=== PATIENT | female | born 1950 | race Caucasian/White ===

== ENCOUNTER → 2020-05-18 | Outpatient (CLI) | payer MEDICARE, OTHER ==
--- NOTE | 2020-05-18 21:06 | CONS ---
CONSULTATION DATE OF SERVICE: 05/18/2020 This patient is a 69-year-old lady who [facility] obstructive sleep apnea-hypopnea syndrome and episodes of excessive daytime sleepiness and fatigue. HISTORY OF PRESENT ILLNESS/SLEEP-WAKE EVALUATION: This patient was diagnosed with obstructive sleep apnea in 2012. Since that time she has been on treatment with CPAP. She continues to use his CPAP equipment every night. Her regular sleep schedule is from midnight or 1 a.m. until 10:30 a.m. She does have problems with falling asleep, has a TV set in the bedroom. She usually sleeps on the back and side positions. She takes multiple rest periods during the day. She has difficulties paying attention, problems with memory and concentration, sexual dysfunction. At night she wakes up once, usually without any episodes of nocturia. She describes that sometimes there are days when she is sleeping all day, although [place] Sleepiness Scale is only 1. I checked the patient's CPAP unit. CPAP pressure is 9 cm of water, usage 30/30 nights with average usage 8.8 hours per night. The machine does not have information about apnea-hypopnea index. PAST MEDICAL HISTORY: Positive for multiple sclerosis diagnosed about 25 years ago with documented lesions by MRI in the brain. According to the patient, recent evaluation by did not show any abnormalities of neurological exam. She has a history of hypertension, depression, hyperlipidemia, multifactorial fatigue. Some evaluation for lupus erythematosus also was positive (?) SOCIAL HISTORY: Negative for smoking or using alcohol. MEDICATIONS: Clopidogrel, hydrochlorothiazide, Viibryd, metoprolol, buspirone, atorvastatin, lisinopril, alendronate, lorazepam, ipratropium bromide. REVIEW OF SYSTEMS: Episodes of fatigue, tiredness and sometimes sleepiness during the day. PHYSICAL EXAMINATION: GENERAL: A pleasant patient in no distress. VITAL SIGNS: BP 149/81, HR 80, RR 16, height 5 feet 4-1/2 inches, weight 172, BMI 29.0, temperature 97.9, oxygen saturation at room air 98%. HEENT: PERRLA, EOMI. Evaluation of oropharynx showed tongue protrudes midline. Low position of soft palate. Mallampati III to IV. NECK: Supple. No JVD. Thyroid is not palpable. Neck measures 15 inches in circumference. LUNGS: Clear to percussion and to auscultation. Good air exchange. No wheezing or rhonchi. HEART: S1, S2 regular. No murmurs, gallops or rubs. ABDOMEN: Obese. EXTREMITIES: No clubbing or cyanosis. WOLF HUNTER: Awake, alert, and oriented X3. Cranial nerves 2 to 7 intact. There is no fasciculation or atrophy. noted. No focal deficits observed. IMPRESSION: 1. Obstructive sleep apnea-hypopnea syndrome diagnosed about 7 years ago in another institution. The patient is on treatment with CPAP every night for the whole night. 2. History of multiple sclerosis documented by results of MRI multiple times. Last results, according to patient, about 3 years ago. Last changes were documented about 3 years ago. 3. History of multifactorial fatigue. 4. Episodes of significant daytime sleepiness, with patient staying in bed for many hours and falling asleep, according to patient. Differential diagnosis should include hypersomnia. 5. Hypertension. 6. Depression. 7. Hyperlipidemia. 8. Questionable positive results for lupus erythematosus evaluation in the past. PLAN: 1. To get results of previous sleep studies. 2. CPAP titration with a following multiple sleep latency test on the next day for evaluation of effective CPAP pressure at the present time and to objectively assess sleepiness. 3. After the test, patient will receive new PAP therapy device. 4. Sleep hygiene with regular time in bed for 7-1/2 to 8 hours. 5. No driving if feeling any sleepiness. Thank you very much for allowing me to participate in the management of your patient. Sincerely, Ian Urbano MD, PhD, FAASM Diplomat of [employer] [facility] MMODL / IJN: [id number] /
== END | disposition home or self-care (01) ==
LOC: SLEEP 15:32
PROVIDERS: ATTEND Internal Medicine
DX: G47.33 Obstructive sleep apnea (adult) (pediatric) (principal); I10 Essential (primary) hypertension; F32.9 Major depressive disorder, single episode, unspecified; E78.5 Hyperlipidemia, unspecified; Z86.69 Personal history of other diseases of the nervous system and sense organs; Z79.899 Other long term (current) drug therapy
CPT/HCPCS: 99211

== ENCOUNTER 2021-08-11 05:33 | Emergency (ER) | payer MEDICARE, OTHER ==
[2021-08-11 05:39] VITALS: RESP 18; TEMP 97.9
[2021-08-11] MEDS ORDERED: IBUPROFEN 600 MG TAB PO STA (06:02)
[2021-08-11] MEDS ORDERED: DEXAMETHASONE SOD PHOSPHATE 10 MG/ML 1 ML VIAL IM STA (06:02)
[2021-08-11] MEDS ORDERED: ACETAMINOPHEN TAB 500 MG TAB PO STA (06:03)
--- NOTE | 2021-08-11 06:10 | ED ---
ENT HPI - General Chief complaint: ENT Stated complaint: sore throat Time Seen by Provider: 08/11/21 05:35 Source: patient, RN notes reviewed, old records reviewed Mode of arrival: ambulatory Limitations: no limitations - History of Present Illness Initial comments: This is a 71-year-old female to the emergency room today. Patient presents today for evaluation regards to sore throat. Patient awoke with sore throat tonight. No fevers. No nausea no vomiting. Significant swelling. No recent travel history or sick contacts. No other complaints no family versus similar complaints MD complaint: sore throat -: hour(s) Location: throat Severity: moderate Severity scale (1-10): 4 Quality: aching Consistency: constant Improves with: none Worsens with: swallowing Associated Symptoms: pain with swallowing, sore throat - Related Data Previous Rx's Medication Instructions Recorded Azithromycin [Zithromax] 250 mg PO DAILY 1 Days #1 tab 08/11/21 Allergies Allergy/AdvReac Type Severity Reaction Status Date / Time Penicillins Allergy Unknown Verified 08/15/21 14:01 Childhood Review of Systems ROS Statement: Those systems with pertinent positive or pertinent negative responses have been documented in the HPI. ROS Other: All systems not noted in ROS Statement are negative. Past Medical History Past Medical History: Hypertension, Myocardial Infarction ([place]) History of Any Multi-Drug Resistant Organisms: None Reported Past Surgical History: Heart Catheterization With Stent Past Psychological History: Anxiety, Depression Smoking Status: Never smoker Past Alcohol Use History: None Reported Past Drug Use History: None Reported General Exam Limitations: no limitations General appearance: alert, in no apparent distress Head exam: Present: atraumatic, normocephalic, normal inspection Eye exam: Present: normal appearance, PERRL, EOMI. Absent: scleral icterus, conjunctival injection, periorbital swelling ENT exam: Present: normal exam, mucous membranes moist Neck exam: Present: normal inspection. Absent: tenderness, meningismus, lymphadenopathy Respiratory exam: Present: normal lung sounds bilaterally. Absent: respiratory distress, wheezes, rales, rhonchi, stridor Cardiovascular Exam: Present: regular rate, normal rhythm, normal heart sounds. Absent: systolic murmur, diastolic murmur, rubs, gallop, clicks GI/Abdominal exam: Present: soft, normal bowel sounds. Absent: distended, tenderness, guarding, rebound, rigid Extremities exam: Present: normal inspection, full ROM, normal capillary refill. Absent: tenderness, pedal edema, joint swelling, calf tenderness Back exam: Present: normal inspection Neurological exam: Present: alert, oriented X3, CN II-XII intact Psychiatric exam: Present: normal affect, normal mood Skin exam: Present: warm, dry, intact, normal color. Absent: rash Course Vital Signs 08/11/21 08/11/21 05:36 06:45 Temperature 97.9 F Pulse Rate 82 79 Respiratory 18 18 Rate Blood Pressure 194/80 165/82 O2 Sat by Pulse 99 98 Oximetry - Reevaluation(s) Reevaluation #1: Medical record is reviewed Patient symptoms are improved here in the ER and remained improved Patient informed results and questions answered Medical Decision Making - Medical Decision Making This female DF for evaluation of significant sore throat woke up with sore throat tonight. Swelling. Patient has swelling of uvula and difficulty with swallowing. Symptoms significantly improved here in the ER patient's improved patient can be discharged home - Radiology Data Radiology results: report reviewed (X-ray soft tissue neck is negative for acute disease), image reviewed Disposition Clinical Impression: Uvulitis, Sore throat, Strep pharyngitis Disposition: HOME SELF-CARE Condition: Good Instructions (If sedation given, give patient instructions): Pharyngitis (ED), Strep Throat (ED) Prescriptions: Azithromycin [Zithromax] 250 mg PO DAILY 1 Days #1 tab Is patient prescribed a controlled substance at d/c from ED?: No Referrals: Nonstaff,Physician [Primary Care Provider] - 1-2 days
[2021-08-11] MEDS ORDERED: AZITHROMYCIN 500 MG TAB PO STA (06:12)
--- NOTE | 2021-08-11 06:21 | XR ---
EXAMINATION TYPE: XR soft tissue neck DATE OF EXAM: 08/11/2021 COMPARISON: NONE HISTORY: Sore throat TECHNIQUE: 2 views FINDINGS: Epiglottis is normal. There is moderate spondylotic changes in the cervical spine from C4 t o C7. There is anterior large osteophyte formation. Subglottic trachea appears normal. Tonsils and ad enoids appear normal. IMPRESSION: Negative cervical soft tissue exam. Spondylotic changes noted in the cervical spine.
[2021-08-11 06:46] VITALS: BP 165/82; PULSE 79
== END 2021-08-11 06:46 | disposition home or self-care (01) ==
LOC: EC 05:33
DX: K12.2 Cellulitis and abscess of mouth (principal); J02.0 Streptococcal pharyngitis; I10 Essential (primary) hypertension; I25.2 Old myocardial infarction; Z88.0 Allergy status to penicillin
CPT/HCPCS: 70360; 99283; J1100

== ENCOUNTER 2021-08-15 13:16 | Emergency (ER) | payer MEDICARE, OTHER ==
[2021-08-15 14:01] VITALS: BP 198/81; PULSE 70; RESP 20; TEMP 98.6
--- NOTE | 2021-08-15 16:20 | XR ---
EXAMINATION TYPE: XR hand complete LT, XR wrist complete LT DATE OF EXAM: 08/15/2021 CLINICAL HISTORY: pain TECHNIQUE: Frontal, lateral and oblique images of the left hand and wrist are obtained. COMPARISON: None. FINDINGS: There is no acute fracture/dislocation evident. The joint spaces appear within normal limi ts. The overlying soft tissue appears unremarkable. IMPRESSION: There is no acute fracture or dislocation. ICD 10 NO FRACTURE, INITIAL EVALUATION
--- NOTE | 2021-08-15 16:27 | ED ---
Upper Extremity HPI - General Chief Complaint: Extremity Injury, Upper Stated Complaint: Fall/wrist injury/wants covid test Time Seen by Provider: 08/15/21 16:10 Source: patient, RN notes reviewed Mode of arrival: ambulatory Limitations: no limitations - History of Present Illness Initial Comments: This a 71-year-old female presents emergency from chief complaint of a fall. Patient was left wrist and hand pain. No head injury no loss conscious. Patient states it is swollen. Patient states that the trip and fallsyncope. Patient states that she's been sick she was placed in antibiotics for her primary care physician requested COVID-19 testing. Patient offers no other associated complaints. - Related Data Previous Rx's Medication Instructions Recorded Azithromycin [Zithromax] 250 mg PO DAILY 1 Days #1 tab 08/11/21 Allergies Allergy/AdvReac Type Severity Reaction Status Date / Time Penicillins Allergy Unknown Verified 08/15/21 14:01 Childhood Review of Systems ROS Statement: Those systems with pertinent positive or pertinent negative responses have been documented in the HPI. ROS Other: All systems not noted in ROS Statement are negative. Past Medical History Past Medical History: Hypertension, Myocardial Infarction ([place]) History of Any Multi-Drug Resistant Organisms: None Reported Past Surgical History: Heart Catheterization With Stent Past Psychological History: Anxiety, Depression Smoking Status: Never smoker Past Alcohol Use History: None Reported Past Drug Use History: None Reported General Exam Limitations: no limitations General appearance: alert, in no apparent distress Head exam: Present: atraumatic, normocephalic, normal inspection Eye exam: Present: normal appearance, PERRL, EOMI. Absent: scleral icterus, conjunctival injection, periorbital swelling ENT exam: Present: normal exam, mucous membranes moist Respiratory exam: Present: normal lung sounds bilaterally. Absent: respiratory distress, wheezes, rales, rhonchi, stridor Cardiovascular Exam: Present: regular rate, normal rhythm, normal heart sounds. Absent: systolic murmur, diastolic murmur, rubs, gallop, clicks Extremities exam: Present: other (Left wrist, hand swelling noted, tenderness palpation distal radius and almost, neurovascular intact) Course Vital Signs 08/15/21 13:58 Temperature 98.6 F Pulse Rate 70 Respiratory 20 Rate Blood Pressure 198/81 O2 Sat by Pulse 98 Oximetry Medical Decision Making - Medical Decision Making Patient was offered pain relief patient declines. X-rays reviewed no acute fracture. Patient is COVID-19 negative. - Lab Data Lab Results 08/15/21 Range/Units 14:05 Coronavirus (PCR) Not Detected (Not Detectd) Disposition Clinical Impression: Left wrist sprain Disposition: HOME SELF-CARE Condition: Stable Instructions (If sedation given, give patient instructions): Wrist Injury (ED) Additional Instructions: Please return to the Emergency Department if symptoms worsen or any other concerns. Is patient prescribed a controlled substance at d/c from ED?: No Referrals: Nonstaff,Physician [Primary Care Provider] - 1-2 days Time of Disposition: 16:27
== END 2021-08-15 16:37 | disposition home or self-care (01) ==
LOC: EC 13:16
DX: S63.502A Unspecified sprain of left wrist, initial encounter (principal); I10 Essential (primary) hypertension; I25.2 Old myocardial infarction; Z88.0 Allergy status to penicillin; Z20.822 Contact with and (suspected) exposure to COVID-19; Z95.5 Presence of coronary angioplasty implant and graft; W01.0XXA Fall on same level from slipping, tripping and stumbling without subsequent striking against object, initial encounter
CPT/HCPCS: 87635; 99283

== ENCOUNTER → 2022-09-28 | Outpatient (CLI) | payer MEDICARE, OTHER ==
[2022-09-28 16:16] LABS: Basophils # (A) 0.03 X 10*3/uL (0.00-0.10); Basophils % (A) 0.6 %; Eosinophils # (A) 0.09 X 10*3/uL (0.04-0.35); Eosinophils % (A) 1.7 %; HCT 41.5 % (37.2-46.3); HGB 13.3 g/dL (12.0-15.0); Immature Grans, Automated 0.4 %; Lymphocytes # (A) 1.65 X 10*3/uL (0.90-5.00); Lymphocytes % (A) 31.1 %; Mean Platelet Volume 10.4 fL (9.5-12.2); Monocytes # (A) 0.56 X 10*3/uL (0.20-1.00); Monocytes % (A) 10.6 %; NRBC Per 100 WBC 0 /100 WBCS (0.0-0.0); Neutrophils # (A) 2.95 X 10*3/uL (1.80-7.70); Neutrophils % (A) 55.6 %; Platelet Count 231 X 10*3/uL (140-440); RBC 4.15 X 10*6/uL (4.10-5.20); RDW 12.9 % (11.5-14.5)
[2022-09-28 16:30] LABS: ALT 26 U/L (8-44); AST 28 U/L (13-35); African American GFR (CKD) 87.5 (60.0-200.0); Albumin 4.3 g/dL (3.8-4.9); Albumin/Globulin Ratio 2.14 (1.60-3.17); Alkaline Phosphatase 104 U/L (41-126); BUN/Creat Ratio 14.06 Ratio (12.00-20.00); Blood Urea Nitrogen 10.9 mg/dL (9.0-27.0); Calcium 9.4 mg/dL (8.7-10.3); Carbon Dioxide 28.6 mmol/L (20.0-27.5); Chloride 101 mmol/L (96-109); Chol/HDL Ratio 2.58 Ratio; Glucose 133 mg/dL (70-110); LDL Cholesterol,Calculated 69.8 mg/dL (0.0-131.0); Non-African American GFR(CKD) 75.5 (60.0-200.0); Potassium 3.6 mmol/L (3.5-5.5); Sodium 141 mmol/L (135-145); Total Protein 6.4 g/dL (6.2-8.2)
== END | disposition home or self-care (01) ==
LOC: LABWHC1 11:43
PROVIDERS: ATTEND Internal Medicine
DX: Z01.812 Encounter for preprocedural laboratory examination (principal); E11.9 Type 2 diabetes mellitus without complications; I10 Essential (primary) hypertension; E78.5 Hyperlipidemia, unspecified; I25.10 Atherosclerotic heart disease of native coronary artery without angina pectoris
CPT/HCPCS: 36415; 80053; 80061; 83036; 85025

== ENCOUNTER 2022-10-02 08:38 | Inpatient (IN) | payer MEDICARE, OTHER ==
[~2022-10-02 08:38] MED LIST: DEXAMETHASONE SOD PHOSPHATE 4 MG/ML 1 ML VIAL IV ONE; LIDOCAINE 1% (10MG/ML) FOR IV START INTRADERMA PRN; MIDAZOLAM 2 MG/2 ML VIAL IV PRN; ONDANSETRON 4 MG/2 ML VIAL IVP ONE
[2022-10-02 09:46] LABS: Glucose,Whole Blood 112 mg/dL (70-110)
[2022-10-02] MEDS: LACTATED RINGERS 1,000 ML IV SCH (09:57)
[2022-10-02 11:25] LABS: Appearance,Urine Clear (Clear); Bilirubin,Urine Negative (Negative); Blood,Urine Negative (Negative); Color,Urine Colorless; Glucose,Urine (UA) Negative (Negative); Ketones,Urine Negative (Negative); Leukocyte Esterase,Urine Negative (Negative); Nitrite,Urine Negative (Negative); Protein,Urine Negative (Negative); Specific Gravity,Urine 1.007 (1.001-1.035); Urobilinogen,Urine <2.0 mg/dL (<2.0)
[2022-10-02] MEDS ORDERED: SODIUM CHLORIDE 0.9% 50 ML with ceFAZolin 2,000 MG IV ONE ×2 (11:50)
[2022-10-02] MEDS ORDERED: LIDOCAINE 2%-EPI 1:100,000 20 ML VIAL SQ ONE (12:07)
[2022-10-02] MEDS ORDERED: ceFAZolin 1,000 MG in SODIUM CHLORIDE 0.9% 1,000 ML IRRIGATION ONE (12:26)
[2022-10-02] MEDS ORDERED: LACTATED RINGERS 1,000 ML IV ONE (12:35)
--- NOTE | 2022-10-02 13:06 | XR ---
EXAMINATION TYPE: XR cervical spine 1V DATE OF EXAM: 10/02/2022 COMPARISON: None HISTORY: Needle placement TECHNIQUE: Crosstable lateral cervical spine is obtained. FINDINGS: The needle was placed directed to the C5 vertebral level.. Large anterior vertebral body sp urs are present at C4 C5-6. IMPRESSION: 1. Metallic device directed towards the C5 vertebral level.
[2022-10-02] MEDS ORDERED: HYDROcodone/APAP 5-325MG 1 EACH TAB PO PRN (14:51)
[2022-10-02] MEDS ORDERED: ONDANSETRON 4 MG/2 ML VIAL IVP PRN (14:51)
[2022-10-02] MEDS ORDERED: diazePAM 5 MG TAB PO PRN (14:51)
[2022-10-02] MEDS ORDERED: CYCLOBENZAPRINE 5 MG TAB PO PRN (14:51)
[2022-10-02] MEDS ORDERED: BENZOCAINE/MENTHOL LOZENG 1 EACH LOZENGE MUCOUS MEM PRN (14:51)
[2022-10-02] MEDS ORDERED: LORazepam 0.5 MG TAB PO PRN (14:54)
[2022-10-02] MEDS ORDERED: FAMOTIDINE 20 MG TAB PO PRN (14:54)
[2022-10-02] MEDS: HYDROmorphone 0.5 MG/0.5 ML SYRINGE IVP PRN ×4 (15:00→20:54)
--- NOTE | 2022-10-02 15:04 | P.OP ---
Date of Procedure: 10/02/22 Preoperative Diagnosis: Cervical myelopathy, severe cervical stenosis C3 4 C4 5 C5 6, cervical kyphosis, cervical deformity, large osteophytes C4 5 C5 6, upper extremity radiculopathy, upper extremity weakness, degenerative disc disease Postoperative Diagnosis: Same Anesthesia: GETA Pathology: none sent Condition: stable Disposition: PACU Description of Procedure: BRIEF OPERATIVE NOTE Preoperative Diagnosis:Cervical myelopathy, severe cervical stenosis C3 4 C4 5 C5 6, cervical kyphosis, cervical deformity, large osteophytes C4 5 C5 6, upper extremity radiculopathy, upper extremity weakness, degenerative disc disease Postoperative Diagnosis:Cervical myelopathy, severe cervical stenosis C3 4 C4 5 C5 6, cervical kyphosis, cervical deformity, large osteophytes C4 5 C5 6, upper extremity radiculopathy, upper extremity weakness, degenerative disc disease Procedure: Cervical corpectomy of C5 for decompression Anterior cervical decompression and discectomy and fusion C3 4 C4 5 C5 6 Placement of interbody peek cage C4 to C6 Local autogenous bone grafting to fill the cage from C4 to C6 Placement of interbody allograft bone graft C3 4 Application of anterior cervical plate Surgeon: Dr. Watson Test And Balance Engineer: Gerardo Grimaldo is present throughout the entire the case persistence during positioning, dissection, exposure, visualization, and all crucial elements of the case as well as closure. Anesthesia: General anesthesia per Dr. Killian Estimated blood loss: Approximately 100 mL Complications: None apparent Components implanted: K2M [place] anterior cervical plate system with screws, one him because interbody allograft bone graft, one 22 mm peek cage Disposition: To recovery room in good stable condition. OPERATIVE INDICATIONS The patient has had long-standing issues in their neck and upper extremities. She has been having significant worsening of her symptoms at her neck and her upper extremities over the past several months. She has noticed radicular symptoms and weakness at her upper extremities as well. She is having increased neck pain. She is found have significant changes at her cervical spine and had undergone conservative treatment. The patient has been through conservative treatment. She is not having any significant benefit despite aggressive conservative care. She is found have significant cervical deformity with kyphosis and massive nature cervical osteophytes at C45 and C5 6 in conjunction with severe cervical stenosis and evidence of cervical myelopathy with upper extremity radiculopathy and weakness. We discussed various treatment options including surgery, and the patient wishes to proceed with surgery We discussed the risk, patient's alternatives and benefits of surgery including but not limited to, risk of bleeding risk of infection, risk of need for further surgery, risk of decreased, loss of motion, muscle function, malunion nonunion, hardware failure, nerve damage, paralysis, heart attack, and . OPERATIVE SUMMARY After discussing all the risks, patient alternatives and benefits at length, the patient elected to proceed with surgical intervention, signed informed consent, and presented for their procedure. The patient was seen and examined in the preoperative holding area and the surgical site was marked. The patient was given antibiotics and brought to the operating room. The patient was positioned on the operating room table in a supine position being careful to pad any bony prominences and pressure points. The patient was sedated and intubated by anesthesia in standard fashion. Once the airway and C- spine were stabilized the patient's arms were padded and tucked at her side, with her shoulders gently taped. The head was placed in a donut pad with the neck in good neutral alignment and position. We were careful to maintain the patient's cervical spine and good neutral alignment and position throughout. The patient was prepped and draped in a normal standard fashion. An appropriate timeout and keystone protocol performed. We were able to proceed with the surgery. The local wound area was infiltrated with local anesthetic. An incision was made transversely approximately 2-1/2 cm over the appropriate levels at C4 5. Dissection was taken down subcutaneously to the level of the platysma which was split in line with its fibers. Dissection was taken with a carotid approach, with the trachea and esophagus medial and the carotid sheath laterally. We dissected down to the anterior surface of the vertebral bodies. Intraoperative x-ray was taken which showed a marker at the appropriate level at C4 5 with massive osteophytes from C4 to C6. With the appropriate level positively confirmed, we were able to proceed with discectomy at the appropriate levels. I had to remove large areas of anterior cervical osteophytes in order to get down to stable bone and find the disc space itself. All of the operative levels were exposed appropriately from C3 to C6. The patient had all their twitches back, and there was no evidence of recurrent laryngeal issue. The wound was copiously irrigated and suctioned dry as had been done periodically throughout the case. I started with proceeding with a decompression discectomy at C5 6 and then moving the C4 5 and then performing a corpectomy of C5 as it was severe stenosis behind the vertebral body of C5. I then moved to C3 4 for the further discectomy and decompression at that level. At the appropriate level/levels, I had removed large osteophytes and then I established an annulotomy with an 11 blade scalpel. A discectomy was performed with a combination of pituitary rongeurs, curettes, a high-speed bur, and Kerrison rongeurs. The posterior longitudinal ligament was taken down as were any posterior osteophytes. This gave good central and bilateral foraminal decompression at the level of the disc. There is no evidence of any dural tear or leak. There was significant stenosis behind C5 and had to perform a complete corpectomy at that level to provide good central decompression behind C5. All of the bone that was removed from this was saved for local autogenous bone grafting. The endplates were prepared with a high-speed bur. From C4 to C6 I measured for the appropriate size peek cage which was filled with local a utogenous bone graft and then with anesthesia holding the head and neck in good neutral alignment and position was able to place the cage from C4 6 and position with good fit and fill with anterior surface flush with the anterior surface of the vertebral body of C4. When placing the other bone graft at C3 4 I was able to measure and place the allograft in good alignment and position with anterior surface flush with the anterior surface of the vertebral bodies of C3 4. With the endplates in good parallel position, I was able to size for the appropriate size interbody graft. The wound was irrigated and suctioned dry the graft was prepared and malleted into position. It had good alignment and position with the anterior surface flush with the anterior surface of the vertebral bodies. With the grafts intact, I was able to measure and contour and appropriate sized plate. The plate was positioned at the midline over the appropriate levels. Screw holes were established with a hand drill and drill guide. Screws were placed in good alignment and position with excellent bony purchase. I had to use a 4.0 screw for one and screws at C4 to get good purchase. They were seated under the locking device. The construct was checked and found to be stable. Intraoperative x-ray was taken which showed good alignment and position of the implants at the appropriate levels. There was no evidence of any dural tear or leak. Good hemostasis was maintained. The wound was copiously irrigated and suctioned dry as had been done periodically throughout the case. The platysma was closed with absorbable suture. The subcutaneous tissue was closed. The subcuticular tissue was closed with absorbable suture. The wound was cleaned and dried and dressed appropriately. A hard cervical collar was placed appropriately which is utilized in cases of corpectomy, . The patient was woken up by anesthesia, extubated, transferred back gently to their hospital bed and brought to the recovery room in good stable condition. The patient will be admitted to the hospital for appropriate postoperative care, medical management and monitoring. We will continue to follow them closely about the postoperative course.
--- NOTE | 2022-10-02 15:36 | XR ---
EXAMINATION TYPE: XR cervical spine 1V DATE OF EXAM: 10/02/2022 COMPARISON: Earlier exam HISTORY: Needle placement TECHNIQUE: Lateral cervical spine FINDINGS: Needle is directed to the superior endplate of C5. IMPRESSION: 1. Needle directed to the superior C5 endplate at the C4-5 disc level.
--- NOTE | 2022-10-02 15:47 | XR ---
EXAMINATION TYPE: XR cervical spine 1V DATE OF EXAM: 10/02/2022 COMPARISON: Earlier exam HISTORY: Hardware placement for anterior cervical fusion TECHNIQUE: Crosstable lateral cervical spine FINDINGS: Anterior cervical fusions present C3-C6. Disc spacer appears to be present. Patient is intu bated. IMPRESSION: 1. Anterior cervical fusion
--- NOTE | 2022-10-02 15:48 | XR ---
EXAMINATION TYPE: XR cervical spine 1V DATE OF EXAM: 10/02/2022 COMPARISON: Earlier exam HISTORY: Anterior cervical fusion TECHNIQUE: Crosstable lateral cervical spine FINDINGS: Anterior cervical fusion see 3 through C6 is present. Disc spacers and radiopaque markers w ere utilized. Patient is intubated. IMPRESSION: 1. Anterior cervical fusion.
[2022-10-02] MEDS: SODIUM CHLORIDE 0.9% 1,000 ML IV SCH (16:14)
[2022-10-02 16:38] LABS: Glucose,Whole Blood 136 mg/dL (70-110)
[2022-10-02] MEDS: CIPROFLOXACIN HCL 500 MG TAB PO SCH (20:50)
[2022-10-02] MEDS ORDERED: lisinopriL 10 MG TAB PO SCH (21:00)
[2022-10-02] MEDS ORDERED: ATORVASTATIN 40 MG TAB PO SCH (21:00)
[2022-10-02] MEDS ORDERED: busPIRone HCl 5 MG TAB PO SCH (21:00)
[2022-10-02] MEDS ORDERED: metFORMIN 500 MG TAB PO SCH (21:00)
[2022-10-02] MEDS: busPIRone HCl 10 MG TAB PO SCH (21:12)
[2022-10-03] MEDS: SODIUM CHLORIDE 0.9% 1,000 ML IV SCH ×2 (04:42→09:00)
[2022-10-03] MEDS ORDERED: PANTOPRAZOLE 40 MG TABLET PO SCH (07:30)
[2022-10-03 07:49] VITALS: BP 126/65; PULSE 72; RESP 18; TEMP 97.8
[2022-10-03] MEDS: LACTATED RINGERS 1,000 ML IV SCH (08:51)
[2022-10-03] MEDS ORDERED: CHOLECALCIFEROL 25 MCG (1000 IU) TABLET PO SCH (09:00)
[2022-10-03] MEDS ORDERED: NON FORMULARY DRUG (Ubidecarenone [Co Q-10] 400 MG Capsule) PO SCH (09:00)
[2022-10-03] MEDS ORDERED: ASPIRIN 81 MG PO SCH (09:00)
[2022-10-03] MEDS ORDERED: CALCIUM CARBONATE 500 MG CHEWABLE PO SCH (09:00)
[2022-10-03] MEDS ORDERED: hydroCHLOROthiazide 25 MG TAB PO SCH (09:00)
[2022-10-03] MEDS ORDERED: NON FORMULARY DRUG (Vilazodone Hcl [Viibryd] 40 MG Tablet) PO SCH (09:00)
[2022-10-03] MEDS ORDERED: CYANOCOBALAMIN 500 MCG TAB PO SCH (09:00)
[2022-10-03] MEDS ORDERED: METOPROLOL TARTRATE 25 MG TAB PO SCH (09:00)
[2022-10-03] MEDS: busPIRone HCl 10 MG TAB PO SCH (09:02)
[2022-10-03] MEDS: CIPROFLOXACIN HCL 500 MG TAB PO SCH (09:04)
--- NOTE | 2022-10-03 09:35 | P.DS ---
Providers Date of admission: 10/02/22 08:38 Attending physician: David Watson Primary care physician: [facility] Course: The patient presented on the day of admission as per their operative note. She feels her arms are doing well. She is walking well. She is tolerating her diet and is comfortable around her neck. Physical Exam The incision site is clean dry and intact. There is no erythema no drainage. There is no purulence no evidence of infection. Her neck is soft and supple. There is no active drainage. Abdomen soft and nontender. Chest has good excursion with deep inspiration and expiration. The patient has active and passive range of motion intact at the upper and lower extremities. There is no acute change in neurologic status. She has good motion at her upper extremities Hospital Course Postoperative day #1 status post decompression and fusion anterior cervical discectomy and fusion C3 4 C4 5 C5 6 with corpectomy of C5 for decompression for her cervical myelopathy with upper extremity radiculopathy and weakness. Patient is doing well and is making progress postoperatively. The patient has been making good progress postoperatively. She's been ambulatory around the room and is eating well. She feels her arms are doing well. They have completed the prophylactic antibiotics without any signs or symptoms of infection. The patient has been able to advance their diet, and is tolerating diet adequately. The pain was initially controlled with IV medications and is now controlled appropriately with oral medications. The patient has been able to increase their mobilization. The patient has progressed appropriately. I think they are in good stable condition for discharge today. They will be sent home with appropriate prescriptions. I answered their questions to the best of my ability in a language that they can understand and they are agreeable with the plan. They will follow up as directed. Patient Condition at Discharge: Good Plan - Discharge Summary Discharge Rx Participant: No New Discharge Prescriptions: New HYDROcodone/APAP 5-325MG [[place] 5-325] 1 tab PO Q6HR PRN 7 Days #28 tab PRN Reason: Pain No Action modafiniL [Provigil] 100 mg PO QAM Atorvastatin [Lipitor] 40 mg PO HS Ciprofloxacin HCl [Cipro] 500 mg PO BID Famotidine 20 mg PO BID PRN PRN Reason: GERD LORazepam [Ativan] 0.5 mg PO HS PRN PRN Reason: Anxiety Metoprolol Tartrate [Lopressor] 25 mg PO QAM Vilazodone HCl [Viibryd] 40 mg PO QAM Cyanocobalamin (Vitamin B-12) [Vitamin B-12] 1,000 mcg PO QAM Calcium Carbonate [Calcium] 600 mg PO DAILY Alendronate Sodium [Fosamax] 35 mg PO CUEVAS Dexlansoprazole [Dexlansoprazole Dr] 60 mg PO QAM busPIRone HCL 15 mg PO BID hydroCHLOROthiazide 25 mg PO QAM lisinopriL [Zestril] 10 mg PO HS metFORMIN HCL 500 mg PO HS Ubidecarenone [Co Q-10] 400 mg PO DAILY L.acidoph,Paracasei, B.lactis [Probiotic] 1 tab PO DAILY Rhodola 600 mg PO DAILY Cholecalciferol [Vitamin D3 (25 Mcg = 1000 Iu)] 50 mcg PO DAILY Aspirin EC [Ecotrin Low Dose] 81 mg PO DAILY Discharge Medication List Alendronate Sodium [Fosamax] 35 mg PO CUEVAS 09/30/22 [History] Aspirin EC [Ecotrin Low Dose] 81 mg PO DAILY 09/30/22 [History] Atorvastatin [Lipitor] 40 mg PO HS 09/30/22 [History] Calcium Carbonate [Calcium] 600 mg PO DAILY 09/30/22 [History] Cholecalciferol [Vitamin D3 (25 Mcg = 1000 Iu)] 50 mcg PO DAILY 09/30/22 [History] Ciprofloxacin HCl [Cipro] 500 mg PO BID 09/30/22 [History] Cyanocobalamin (Vitamin B-12) [Vitamin B-12] 1,000 mcg PO QAM 09/30/22 [History] Dexlansoprazole [Dexlansoprazole Dr] 60 mg PO QAM 09/30/22 [History] Famotidine 20 mg PO BID PRN 09/30/22 [History] L.acidoph,Paracasei, B.lactis [Probiotic] 1 tab PO DAILY 09/30/22 [History] LORazepam [Ativan] 0.5 mg PO HS PRN 09/30/22 [History] Metoprolol Tartrate [Lopressor] 25 mg PO QAM 09/30/22 [History] Rhodola 600 mg PO DAILY 09/30/22 [History] Ubidecarenone [Co Q-10] 400 mg PO DAILY 09/30/22 [History] Vilazodone HCl [Viibryd] 40 mg PO QAM 09/30/22 [History] busPIRone HCL 15 mg PO BID 09/30/22 [History] hydroCHLOROthiazide 25 mg PO QAM 09/30/22 [History] lisinopriL [Zestril] 10 mg PO HS 09/30/22 [History] metFORMIN HCL 500 mg PO HS 09/30/22 [History] modafiniL [Provigil] 100 mg PO QAM 09/30/22 [History] HYDROcodone/APAP 5-325MG [Columbia 5-325] 1 tab PO Q6HR PRN 7 Days #28 tab 10/03/22 [Rx] Follow up Appointment(s)/Referral(s): David Watson DO [Doctor of Osteopathic Medicine] - 10/22/22 11:00 am (with Praveen) Alma Rosa Heath MD [Primary Care Provider] - 1 Week Activity/Diet/Wound Care/Special Instructions: Keep site clean. May shower with waterproof Tegaderm intact. Do not soak in a tub. After 72 hours postoperatively, patient May remove dressing and then may shower with area uncovered. Leave glue intact and allow it to fray off on its own. May ambulate as tolerated. Avoid heavy or rigorous activity. No repetitive bending twisting or lifting. No overhead work. Discharge Disposition: HOME SELF-CARE
[2022-10-03] MEDS: modafiniL 100 MG TAB PO SCH ×2 (10:25→11:17)
[2022-10-03] MEDS ORDERED: PROPOFOL 10 MG/ML 20 ML VIAL IV ONE (11:30)
[2022-10-03] MEDS ORDERED: SUCCINYLCHOLINE CHLORIDE 200 MG/10 ML VIAL IV ONE (11:30)
[2022-10-03] MEDS ORDERED: ROCURONIUM 10 MG/ML (5 ML VIAL) IV ONE (11:30)
[2022-10-03] MEDS ORDERED: DEXAMETHASONE SOD PHOSPHATE 10 MG/ML 1 ML VIAL ONE (11:30)
[2022-10-03] MEDS ORDERED: LIDOCAINE 2% INJ 20 MG/ML (2 ML VIAL) ONE (11:30)
[2022-10-03] MEDS ORDERED: fentaNYL (PF) 50 MCG/ML 2 ML AMP ONE (11:30)
[2022-10-03] MEDS ORDERED: ePHEDrine 50 MG/ML 1 ML VIAL ONE (11:30)
[2022-10-03] MEDS ORDERED: GLYCOPYRROLATE 0.2 MG/ML 2 ML VIAL ONE (11:30)
[2022-10-03] MEDS ORDERED: NEOSTIGMINE 1 MG/ML 10 ML VIAL ONE (11:30)
[2022-10-03] MEDS ORDERED: MIDAZOLAM 2 MG/2 ML VIAL ONE (11:30)
[2022-10-06] MEDS ORDERED: NON FORMULARY DRUG (Alendronate Sodium [Fosamax] 35 MG Tablet) PO SCH (14:53)
== END 2022-10-03 13:44 | disposition home or self-care (01) | DRG 472 ==
LOC: 2ORMAIN 08:38 → EDSTATUS 10:00 → 4SSUR 14:45
PROVIDERS: ADMIT Orthopaedic Surgery Orthopaedic Surgery of the Spine; ATTEND Orthopaedic Surgery Orthopaedic Surgery of the Spine
PROC: 0RB30ZZ Excision of Cervical Vertebral Disc, Open Approach (ICD-10-PCS; 2022-10-02)
PROC: 01N10ZZ Release Cervical Nerve, Open Approach (ICD-10-PCS; 2022-10-02)
PROC: 4A11X4G Monitoring of Peripheral Nervous Electrical Activity, Intraoperative, External Approach (ICD-10-PCS; 2022-10-02)
PROC: 0RG20A0 Fusion of 2 or more Cervical Vertebral Joints with Interbody Fusion Device, Anterior Approach, Anterior Column, Open Approach (ICD-10-PCS; principal; 2022-10-02 10:00)
DX: M50.023 Cervical disc disorder at C6-C7 level with myelopathy (principal); G95.89 Other specified diseases of spinal cord; M43.12 Spondylolisthesis, cervical region; M50.123 Cervical disc disorder at C6-C7 level with radiculopathy; G35 Multiple sclerosis; I10 Essential (primary) hypertension; E78.5 Hyperlipidemia, unspecified; M25.78 Osteophyte, vertebrae; M40.202 Unspecified kyphosis, cervical region; M48.02 Spinal stenosis, cervical region; Z88.0 Allergy status to penicillin; Z87.19 Personal history of other diseases of the digestive system; Z87.11 Personal history of peptic ulcer disease
CPT/HCPCS: 72020; 81003; 94760

== ENCOUNTER → 2023-02-06 | Outpatient (CLI) | payer MEDICARE, OTHER ==
--- NOTE | 2023-02-06 16:36 | P.PN ---
Subjective DATE: 02/06/2023 FOLLOW UP VISIT. Patient with obstructive sleep apnea hypopnea syndrome return to sleep center for follow-up visit. Information from previous visit have been reviewed. Patient is using PAP equipment every night for the whole night, getting PAP supplies in time. The patient does not have significant problems with the mask, PAP unit and humidification. Comstock sleepiness scale is 0, which is perfect. I checked information from PAP unit. PAP unit pressure 5-14, average 11.4 cm H2O. Usage is 97% and 93 % for more then 4 hours, average 7.5 hours per night. Leak is perfect 1.4 l/m. Apnea Hypopnea Index is 2.5, which is normal. MEDICATIONS:1. Fosamax 35 mg once a week 2. Atorvastatin 40 mg once a day 3. Buspirone 15 mg once a day 4. Hydrochlorothiazide 25 mg once a day 5. Famotidine 20 mg as needed 6. Lisinopril 10 mg once a day 7. Metformin 500 mg once a day 8. Lorazepam 0.5 mg as needed During physical exam: GENERAL: A pleasant patient without any distress. VITAL SIGNS: BP 130/77, HR 71, RR 12 , weight 153.2, temperature 97.9, oxygen saturation at room air 99 % . HEENT: PERRLA, EOMI.low position of soft palate, Mallapati 3-4 . NECK: Supple. No JVD. LUNGS: Clear to percussion and to auscultation. Good air exchange. No wheezing or rhonchi. HEART: S1, S2 regular. ABDOMEN: Soft and nontender.[] EXTREMITIES: No clubbing or cyanosis. SCUDDING INSPECTOR: Awake, alert, and oriented x3. No focal deficit. Impressions: 1. Obstructive sleep apnea-hypopnea syndrome. Patient demonstrated great compliance with treatment, benefiting from treatment. 2. Hypertension. 3. History of depression. 4. Hyperlipidemia. 5. Anxiety. 6. Acid reflux. Plan: 1. Continue using PAP equipment every night for the whole night. 2. To change air filter at least 1-2 times per month. 3. PAP unit should stay lower then position of the head. 4. Advised patient to remove all remaining water from humidifier canister daily and make it dry after each usage. Refill canister with fresh distilled water before each usage. 5. Sleep hygiene with regular time in bed for at least 8 hours. 6. Precautions related to driving. No driving if feel any sleepiness. 7. I will maintain prescription for PAP supplies including mask, tube, filters. 8. Watching weight. 9. Follow up visit in 6 months or earlier if patient has any problems. Thank you very much for allowing me to participate in the management of your patient. Ian Urbano MD, PhD, FAASM. Diplomat of [place] [employer], Sleep Medicine Board by [employer] [facility]
== END ==
LOC: SLEEP 14:26
PROVIDERS: ATTEND Internal Medicine
DX: G47.33 Obstructive sleep apnea (adult) (pediatric) (principal); E78.5 Hyperlipidemia, unspecified; F41.9 Anxiety disorder, unspecified; I10 Essential (primary) hypertension; K21.9 Gastro-esophageal reflux disease without esophagitis; Z79.84 Long term (current) use of oral hypoglycemic drugs; Z79.899 Other long term (current) drug therapy; Z99.89 Dependence on other enabling machines and devices; Z88.0 Allergy status to penicillin
CPT/HCPCS: 99212

== ENCOUNTER → 2023-06-18 | Outpatient (CLI) | payer MEDICARE, OTHER ==
--- NOTE | 2023-06-20 09:17 | MR ---
EXAMINATION TYPE: MR lumbar spine wo/w con DATE OF EXAM: 06/18/2023 4:42 PM COMPARISON: None. 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 IV Contrast: 7 cc Gadavist. None. FINDINGS: Alignment: The lumbar vertebral bodies have preserved heights with grade 1 anterolisthesis of L4 on L 5. Cord: The conus medullaris and the distal spinal cord appear unremarkable with regards to their signa l intensity and morphology. No abnormal postcontrast enhancement. Bones/Discs: Multilevel disc degeneration changes with Modic endplate changes worse at L5-S1. Osteoph yte formation with disc space narrowing is also present. Multilevel neural foraminal stenosis is pres ent. Large osteophytes are seen around the margins of the vertebral bodies. T12-L1: No evidence of significant spinal canal stenosis or neural foraminal stenosis. L1-L2: No evidence of significant spinal canal stenosis or neural foraminal stenosis. L2-L3: No evidence of significant spinal canal stenosis. Facet joint arthropathy mild to moderate bahman ateral neural foraminal stenosis. L3-L4: No evidence of significant spinal canal stenosis. Facet joint arthropathy mild to moderate bahman ateral neural foraminal stenosis. L4-L5: Disc uncovering from grade 1 anterolisthesis and facet joint arthropathy with moderate severe spinal canal stenosis and bilateral moderate to severe neural foraminal stenosis. Mild enhancement ar ound the facet joints at this level. L5-S1: Large osteophyte displaces the exiting L5-S1 nerve extraforaminal region. There is disc space narrowing No evidence for significant spinal canal stenosis. There is moderate to severe left neural foraminal stenosis and moderate right. Enhancement around the facet joints at this level. No significant spinal canal or neural foraminal stenosis in the remainder of the visualized levels. Other findings: None. IMPRESSION: 1. Moderate multilevel degeneration with large osteophyte displacing the left L5-S1 nerve as well as moderate to severe left neural foraminal stenosis. There is some enhancement around the facet joints at L4-L5 and L5-S1 as well as anterior aspect of the L5-S1 disc space. Reactive edema/enhancement co uld relate to patient's etiology of pain. 2. Grade 1 anterolisthesis of L4 and L5 with at least moderate to severe spinal canal stenosis. 3. No additional abnormal postcontrast enhancement or additional areas of significant spinal canal s tenosis.
== END | disposition home or self-care (01) ==
LOC: RADMRIMAIN 15:30
PROVIDERS: ATTEND Physical Medicine & Rehabilitation
DX: M47.816 Spondylosis without myelopathy or radiculopathy, lumbar region (principal); M99.73 Connective tissue and disc stenosis of intervertebral foramina of lumbar region; M43.16 Spondylolisthesis, lumbar region; M48.061 Spinal stenosis, lumbar region without neurogenic claudication; M51.27 Other intervertebral disc displacement, lumbosacral region; Z87.59 Personal history of other complications of pregnancy, childbirth and the puerperium
CPT/HCPCS: 72158; A9585

== ENCOUNTER → 2023-09-13 | Outpatient (CLI) | payer MEDICARE, OTHER ==
--- NOTE | 2023-09-13 15:06 | MR ---
EXAMINATION TYPE: MR cervical spine wo con DATE OF EXAM: 09/13/2023 COMPARISON: None HISTORY: Neck pain, BUE weakness. Hx surgery. TECHNIQUE: Multiplanar, multisequence images of the cervical spine were acquired without contrast. Findings: The craniovertebral junction relationships and prevertebral soft tissues are normal. There is anterior metallic fusion from C3 through C6. At the C4-5 level, there is broad-based disc p rotrusion and spondylosis posteriorly into the left of midline compromising the left lateral recess. There is myelomalacia in the left aspect of the cervical cord at the C4-5 level. At the C5-6 level, there is a large posterior disc/spur complex resulting in marked mass effect on the ventral aspect of the cervical canal and moderate mass effect on the ventral aspect of the cervical cord resulting in a moderate cervical stenosis. There is neural foraminal encroachment at multiple levels as follows; moderate at the C2-3 level on t he right, severe at the C3-4 level on the left, moderate to severe at C4-5 on the right and moderate at the C6-7 level bilaterally. IMPRESSION: 1. Postsurgical change of anterior cervical fusion from C3 3 through C6. 2. Moderate spinal stenosis at the C5-6 level as described above. 3. Myelomalacia within the cervical cord at the C4-5 level as described above 4. Multilevel neural foraminal encroachment as described above.
== END | disposition home or self-care (01) ==
LOC: RADMRIMAIN 13:54
PROVIDERS: ATTEND Physical Medicine & Rehabilitation
DX: M48.02 Spinal stenosis, cervical region (principal); G95.89 Other specified diseases of spinal cord; M99.71 Connective tissue and disc stenosis of intervertebral foramina of cervical region; M47.26 Other spondylosis with radiculopathy, lumbar region; M47.27 Other spondylosis with radiculopathy, lumbosacral region; M51.17 Intervertebral disc disorders with radiculopathy, lumbosacral region; M16.0 Bilateral primary osteoarthritis of hip; M25.78 Osteophyte, vertebrae; M51.26 Other intervertebral disc displacement, lumbar region; M47.24 Other spondylosis with radiculopathy, thoracic region; M51.14 Intervertebral disc disorders with radiculopathy, thoracic region; Z98.1 Arthrodesis status
CPT/HCPCS: 72141

== ENCOUNTER → 2023-09-25 | Outpatient (CLI) | payer MEDICARE, OTHER ==
[2023-09-25 12:37] LABS: African American GFR (CKD) 83 (>60 ml/min/1.73 sqM); Blood Urea Nitrogen 20 mg/dL (7-17); Non-African American GFR(CKD) 72 (>60 ml/min/1.73 sqM)
--- NOTE | 2023-09-25 14:48 | CT ---
EXAMINATION TYPE: CT sinus wo con DATE OF EXAM: 09/25/2023 COMPARISON: NONE HISTORY: chronic nasal drip CT DLP: 593.6 mGycm. Automated Exposure Control for Dose Reduction was Utilized. TECHNIQUE: CT scan of the sinuses is performed without contrast, axial images are obtained, coronal r eformatted images are also reviewed. FINDINGS: There is mucous retention cyst or polyp in the posterior right ethmoid and anterior left et hmoid sinuses. Remainder the paranasal sinuses are clear without suspicious opacification or air-flui d levels The ostiomeatal complex is patent bilaterally on the coronal images. Visualized portion of mastoid air cells show no abnormal opacification. Bilateral aphakia is noted. IMPRESSION: Some chronic ethmoid sinus disease. No acute sinusitis.
--- NOTE | 2023-09-25 15:23 | CT ---
EXAMINATION TYPE: CT soft tissue neck w con DATE OF EXAM: 09/25/2023 HISTORY: left side neck pain when eating x3 weeks h/o MS COMPARISON: NONE CT DLP: 584.2 mGycm. Automated Exposure Control for Dose Reduction was Utilized. TECHNIQUE: CT scan of the neck is performed with IV Contrast, patient injected with 100 mL of Isovue 300, axial images are obtained, coronal and sagittal reformatted images are reviewed. FINDINGS: Airway: Prominence of the palatine tonsils is present with local mass effect. Correlate clinically fo r possible tonsillitis at this level. There is some right thyroid nodule axial image 46 lower pole le lucho. Airway otherwise patent. Parotid/submandibular glands: Metallic BB is placed at level of left submandibular gland. There is be nign subcentimeter lymph node near this level axial image 69. Left submandibular gland is otherwise u nremarkable and symmetric opposite right side. Carotid/Vascular Structures: Mild to moderate calcified plaque left greater than right carotid bulbs is seen. Osseous Structures: Anterior fusion plate C3-C6 levels. There is metallic intervertebral spacer C4-C6 levels. There is grade 1 retrolisthesis C6 on C7. Spinal canal effacement due to posterior bony proj ection at the C5 and C6 levels is seen. There is multilevel spurring in the lower cervical and thorac ic spine noted. Other: The parapharyngeal fat spaces are maintained bilaterally. No greater than 1 cm neck adenopathy is present. IMPRESSION: No suspicious mass or neck adenopathy is seen.
== END | disposition home or self-care (01) ==
LOC: RADCTMAIN 11:51
PROVIDERS: ATTEND Otolaryngology
DX: J32.2 Chronic ethmoidal sinusitis (principal); R22.1 Localized swelling, mass and lump, neck
CPT/HCPCS: 82565; 84520; 70491; 36415; 70486; Q9967

== ENCOUNTER 2023-12-12 08:21 | Day surgery (SDC) | payer MEDICARE, OTHER ==
[~2023-12-12 08:21] MED LIST changes: -DEXAMETHASONE SOD PHOSPHATE 4 MG/ML 1 ML VIAL IV ONE; +HYDROmorphone 0.5 MG/0.5 ML SYRINGE IVP PRN; -LIDOCAINE 1% (10MG/ML) FOR IV START INTRADERMA PRN; -ONDANSETRON 4 MG/2 ML VIAL IVP ONE
[2023-12-12] MEDS: LACTATED RINGERS 1,000 ML IV SCH (08:47)
[2023-12-12 09:27] LABS: Glucose,Whole Blood 121 mg/dL (70-110)
[2023-12-12] MEDS: DEXAMETHASONE SOD PHOSPHATE 4 MG/ML 1 ML VIAL IV ONE (09:29)
[2023-12-12] MEDS: ONDANSETRON 4 MG/2 ML VIAL IVP ONE (09:30)
[2023-12-12] MEDS: MIDAZOLAM 2 MG/2 ML VIAL IVP ONE (09:39)
[2023-12-12] MEDS: fentaNYL (PF) 50 MCG/ML 2 ML AMP IVP ONE (09:40)
[2023-12-12] MEDS ORDERED: SODIUM CHLORIDE 0.9% (PF) 10 ML VIAL ONE (10:21)
[2023-12-12] MEDS ORDERED: ePHEDrine 50 MG/ML 1 ML VIAL ONE (10:21)
[2023-12-12] MEDS ORDERED: ROPIVACAINE 5 MG/ML 30 ML VIAL ONE (10:21)
[2023-12-12] MEDS ORDERED: PROPOFOL 10 MG/ML 20 ML VIAL IV ONE (10:21)
[2023-12-12] MEDS ORDERED: LIDOCAINE 1% INJ 10MG/ML (20 ML MDV) ONE (10:21)
[2023-12-12] MEDS ORDERED: SUCCINYLCHOLINE CHLORIDE 200 MG/10 ML VIAL IV ONE (10:21)
--- NOTE | 2023-12-12 11:40 | P.OP ---
Date of Procedure: 12/12/23 Preoperative Diagnosis: Hallux rigidus right foot Postoperative Diagnosis: Same Procedure(s) Performed: First metatarsal phalangeal joint arthrodesis right foot Implants: Arthrex MaxForce plate with associated locking and nonlocking screws Arthrex bone allograft Anesthesia: EREN Surgeon: Sean Sanchez Estimated Blood Loss (ml): 1 Pathology: none sent Condition: stable Disposition: PACU Description of Procedure: Prior to the patient being brought to the operating room, anesthesia administered a nerve block on the surgical extremity. Then the patient was brought into the operating room and placed on table in the supine position. Timeout was taken to confirm correct patient identifiers, correct lateral surgery, and correct procedure. Once the staff in the room were in agreement with the timeout, the patient was induced and placed under general anesthesia. A well-padded tourniquet was placed on the ankle and then the foot was prepped and draped in the usual manner. The foot was exsanguinated and the tourniquet inflated to 250 mmHg. Attention was directed over the dorsal aspect of the first metatarsal phalangeal joint, where a linear incision was made between the long extensor tendon and the neurovascular structures. The incision was deepened down to the subcutaneous layer careful to identify, avoid, and retract any neurovascular structures and cauterize any bleeding vessels. Blunt dissection was continued through the subcutaneous layer down to the periosteum and capsule. A linear periosteal and capsular incision was made medial to the long extensor tendon. Those tissues were then sharply reflected off of the first metatarsal head and shaft as well as the base of the proximal phalanx. The soft tissue was released around the joint so that the joint could be mobilized and accessed. A guidewire was placed through the central aspect of the first metatarsal head parallel to the long access and within the medullary canal. Appropriate size reamers were used to shape the first metatarsal head. Then a concave reamer was inserted over the guidewire and used to remove the articular cartilage and subchondral bone. The wire was removed was used to aggressively fenestrate the head of the first metatarsal. The guidewire was then inserted at the central aspect of the articular surface of the base of the proximal phalanx. The wire was advanced parallel to the long access and within the medullary canal. The convex reamer was then used to remove the articular cartilage and subchondral bone. The guidewire was removed and used to fenestrate the surface. The wound was thoroughly irrigated with antibiotic saline. Arthrex Arthrocell was placed between the arthrodesis segments. A 0 bend first metatarsal phalangeal joint fusion plate was then positioned dorsally over the site. Temporary fixation was used to hold the plate in place. Fluoroscopy was used to check the placement of the plate as well as the joint alignment. Once both positions were satisfactory, a combination of locking and nonlocking screws were placed in the distal part of the plate into the proximal phalanx. The position of the joint and plate were checked again under fluoroscopy. Once both were satisfactory, a wire was placed in the base of the proximal phalanx and across the arthrodesis site to maintain the alignment. The offset drill guide was then placed in the compression slot of the plate. The guide was removed and then the compression device was inserted through the drill hole and engaged with the plate. The compression device was turned to further compress the joint. While holding in compression, another threaded olive wire was used to hold it in place. A drill hole through the proximal compression slot was then made and a nonlocking screw was inserted and tightened until it engaged the plate and provided further compression across the arthrodesis site. A nonlocking screw was then placed in the drill hole in the proximal aspect of the plate closest to the joint line. The final screw was a locking screw placed in the most proximal hole the plate. Final fluoroscopic imaging showed proper placement of all hardware, maintaining correction of the joint, and excellent compression across the arthrodesis site. The temporary fixation wire was removed and the joint thoroughly irrigated with antibiotic saline. The capsule and periosteal tissues were closed with 0 Vicryl. Subcu closure was done with 4-0 Monocryl. And skin closure was done with 4-0 Stratafix in a running subcuticular manner. Dermal glue was placed around the incision, and once dried, Steri-Strips are placed across incision. An Arthrex jumpstart dressing was placed directly over the incision and then a dry sterile dressings applied to the right foot. The tourniquet was released and capillary refill return to all digits on the foot. The patient was then placed in a well-padded, well molded plaster posterior mold/sugar tong splint. The ankle was held in neutral position until the splint was dried. Then anesthesia was reversed and the patient was taken recovery with vital signs stable.
[2023-12-12 12:05] VITALS: TEMP 97.8
[2023-12-12 12:10] LABS: Glucose,Whole Blood 113 mg/dL (70-110)
[2023-12-12] MEDS: LACTATED RINGERS 1,000 ML IV ONE (12:28)
[2023-12-12 12:37] VITALS: PULSE 72
[2023-12-12 13:09] VITALS: BP 151/73; RESP 18
--- NOTE | 2023-12-12 15:32 | P.ANPRN ---
Procedure Note - Anesthesia - Nerve Block Performed Right Popliteal Single Time Out Performed: Yes (0939) Date of Procedure: 12/12/23 Procedure Start Time: :40 Procedure Stop Time: :42 Location of Patient: PreOp Indication: Acute Post-Operative Pain, Requested by Surgeon Specifically requested for management of pain by DrNaun: Sean Sanchez Sedation Type: Sedate with meaningful contact maintained Preparation: Sterile Prep Position: Left Lateral Catheter: None Needle Types: Pajunk Needle Gauge: 21 Ultrasound used to visualize needle placement: Yes Ultrasound used to observe medication spread: Yes Injectate: 0.5% Ropivacaine (see comment for volume) (15cc + 10cc nacl pf) Blood Aspirated: No Pain Paresthesia on Injection Noted: No Resistance on Injection: Normal Image Stored and Saved: Yes Events: Uneventful and Well Tolerated
--- NOTE | 2023-12-12 15:33 | P.ANPRN ---
Procedure Note - Anesthesia - Nerve Block Performed Right Adductor Canal Single Time Out Performed: Yes (0939) Date of Procedure: 12/12/23 Procedure Start Time: :43 Procedure Stop Time: :46 Location of Patient: PreOp Indication: Acute Post-Operative Pain, Requested by Surgeon Specifically requested for management of pain by DrNaun: Sean Sanchez Sedation Type: Sedate with meaningful contact maintained Preparation: Sterile Prep Position: Supine Catheter: None Needle Types: Pajunk Needle Gauge: 21 Ultrasound used to visualize needle placement: Yes Ultrasound used to observe medication spread: Yes Injectate: 0.5% Ropivacaine (see comment for volume) (15cc + 10cc nacl pf) Blood Aspirated: No Pain Paresthesia on Injection Noted: No Resistance on Injection: Normal Image Stored and Saved: Yes Events: Uneventful and Well Tolerated
== END 2023-12-12 14:20 | disposition home or self-care (01) ==
LOC: OR 08:21
PROVIDERS: ATTEND Podiatrist
DX: M20.21 Hallux rigidus, right foot (principal); G89.18 Other acute postprocedural pain; I11.9 Hypertensive heart disease without heart failure; E78.5 Hyperlipidemia, unspecified; G47.33 Obstructive sleep apnea (adult) (pediatric); E11.9 Type 2 diabetes mellitus without complications; I25.2 Old myocardial infarction; Z90.49 Acquired absence of other specified parts of digestive tract; K21.9 Gastro-esophageal reflux disease without esophagitis; Z82.49 Family history of ischemic heart disease and other diseases of the circulatory system; Z88.0 Allergy status to penicillin; Z79.899 Other long term (current) drug therapy; Z98.890 Other specified postprocedural states
CPT/HCPCS: 64447; 64445; 28750; C1713; C1734; J2250; J0330; J1100; J0690; J2405; J2001; J3010; J2795; J2704

== ENCOUNTER 2024-10-02 17:31 | Emergency (ER) | payer MEDICARE, OTHER ==
[2024-10-02 17:45] VITALS: RESP 18; TEMP 97.8
--- NOTE | 2024-10-02 17:56 | ED ---
Fall HPI - General Chief Complaint: Fall Stated Complaint: Fall Time Seen by Provider: 10/02/24 17:54 Source: EMS, RN notes reviewed Mode of arrival: EMS - History of Present Illness Initial Comments: 74-year-old female presenting with left ankle injury. Patient states she was in level was pushing a cart when she slipped on some water on the floor and fell to the ground, twisting her left ankle. Denies hitting head or losing consciousness. States she is able to bear minimal weight on the left side. No other injuries. - Related Data Home Medications Medication Instructions Recorded Confirmed Alendronate Sodium [Fosamax] 35 mg PO CUEVAS 09/30/22 12/12/23 Aspirin EC [Ecotrin Low Dose] 81 mg PO HS 09/30/22 12/12/23 Atorvastatin [Lipitor] 40 mg PO HS 09/30/22 12/12/23 Calcium Carbonate [Calcium] 600 mg PO DAILY 09/30/22 12/12/23 Famotidine 20 mg PO BID PRN 09/30/22 12/12/23 LORazepam [Ativan] 0.5 mg PO HS PRN 09/30/22 12/12/23 Metoprolol Tartrate [Lopressor] 25 mg PO QAM 09/30/22 12/12/23 Ubidecarenone [Co Q-10] 400 mg PO DAILY 09/30/22 12/12/23 Vilazodone HCl [Viibryd] 40 mg PO QAM 09/30/22 12/12/23 busPIRone HCL 15 mg PO BID 09/30/22 12/12/23 hydroCHLOROthiazide 25 mg PO QAM 09/30/22 12/12/23 lisinopriL [Zestril] 10 mg PO HS 09/30/22 12/12/23 metFORMIN HCL 500 mg PO 1900 09/30/22 12/12/23 modafiniL [Provigil] 100 mg PO QAM 09/30/22 12/12/23 Ascorbic Acid [Vitamin C] 1,000 mg PO DAILY 12/11/23 12/12/23 Coreg(Unknown Dose) 1 tab PO DIRECTED PRN 12/11/23 12/12/23 Fexofenadine HCl [Lizbeth Allergy] 180 mg PO DAILY PRN 12/11/23 12/12/23 Ipratropium [place] 0.06%Nasal 2 spray EA NOSTRIL BID 12/11/23 12/12/23 [Atrovent Nasal 0.06%] Montelukast [Singulair] 10 mg PO HS 12/11/23 12/12/23 Allergies Allergy/AdvReac Type Severity Reaction Status Date / Time Penicillins Allergy Unknown Verified 12/12/23 08:42 Childhood Review of Systems ROS Statement: Those systems with pertinent positive or pertinent negative responses have been documented in the HPI. ROS Other: All systems not noted in ROS Statement are negative. Past Medical History Past Medical History: Diabetes Mellitus, GERD/Reflux, Hypertension, Myocardial Infarction (MD), Musculoskeletal Disorder, Neurologic Disorder, Osteoarthritis (OA), Sleep Apnea/CPAP/BIPAP Additional Past Medical History / Comment(s): MS, NIDGe. USES CPAP, chronic back pain, seen in [facility] last night because BP was elevated-pt. 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 BREAST REDUCTION. LAMINECTOMY (L4). 2021 had multi level cervical fusion Past Anesthesia/Blood Transfusion Reactions: Postoperative Nausea & Vomiting (PONV) Additional Past Anesthesia/Blood Transfusion Reaction / Comment(s): one time issue w/PONV w/breast reduction, can be difficult IV start @times Date of Last Stent Placement:: UNKNOWN Past Psychological History: Anxiety, Depression Smoking Status: Never smoker - Past Family History Mother Family Medical History: Deep Vein Thrombosis (DVT) General Exam Limitations: no limitations General appearance: alert, in no apparent distress Head exam: Present: atraumatic, normocephalic, normal inspection Left Lower Leg exam: Present: normal inspection, full ROM. Absent: tenderness, swelling Ankle exam: Present: full ROM, tenderness, swelling. Absent: normal inspection (Edema and tenderness over lateral malleolus), deformity, erythema Foot/Toe exam: Present: normal inspection, full ROM. Absent: swelling Neurovascular tendon exam: Present: no vascular compromise. Absent: pulse deficit, abnormal cap refill, sensory deficit Neurological exam: Present: alert, oriented X3 Psychiatric exam: Present: normal affect, normal mood Skin exam: Present: warm, dry, intact, normal color. Absent: rash Course Vital Signs 10/02/24 10/02/24 17:38 18:55 Temperature 97.8 F Pulse Rate 60 69 Respiratory 18 18 Rate Blood Pressure 144/80 145/74 O2 Sat by Pulse 97 98 Oximetry Procedures - Orthopedic Splinting/Casting Injury #1 Side: left Lower Extremity Injury Location: ankle Lower Extremity Immobilizer: posterior splint Additional Comments: Neurovascularly intact status post procedure Medical Decision Making - Medical Decision Making Was pt. sent in by a medical professional or institution (, PA, ENVIRONMENTAL OFFICER, urgent care, hospital, or snf...) When possible be specific @ -No Did you speak to anyone other than the patient for history (EMS, parent, family, police, friend...)? What history was obtained from this source @ -No Did you review nursing and triage notes (agree or disagree)? Why? @ -I reviewed and agree with nursing and triage notes Were old charts reviewed (outside hosp., previous admission, EMS record, old EKG, old radiological studies, urgent care reports/EKG's, snf records)? Report findings @ -No old charts were reviewed Differential Diagnosis (chest pain, altered mental status, abdominal pain women, abdominal pain men, vaginal bleeding, weakness, fever, dyspnea, syncope, headache, dizziness, GI bleed, back pain, seizure, CVA, palpatations, mental health, musculoskeletal)? @ -Differential Musculoskeletal Muscular strain, contusion, ligament sprain, fracture, arthritis, septic arthritis, bursitis, cellulitis, muscle spasm, nerve compression, DVT, arterial occlusion, herpes zoster, electrolyte abnormality, tumor.... This is not meant to be in all inclusive list EKG interpreted by me (3pts min.). @ -None X-rays interpreted by me (1pt min.). @ -X-ray left ankle reveals soft tissue swelling and 2 mm ossified density inferior to lateral malleolus which could reflect acute tiny avulsion fracture CT interpreted by me (1pt min.). @ -None done U/S interpreted by me (1pt. min.). @ -None done What testing was considered but not performed or refused? (CT, X-rays, U/S, labs)? Why? @ -None What meds were considered but not given or refused? Why? @ -None Did you discuss the management of the patient with other professionals (professionals i.e. , PA, ENVIRONMENTAL OFFICER, lab, RT, psych nurse, hospice social worker, lacquer machine feeder, teacher, professional security officer, counter caser)? Give summary @ -No Was smoking cessation discussed for >3mins.? @ -No Was critical care preformed (if so, how long)? @ -No Were there social determinants of health that impacted care today? How? (Homelessness, low income, unemployed, alcoholism, drug addiction, transp ortation, low edu. Level, literacy, decrease access to med. care, half-way, rehab)? @ -No Was there de-escalation of care discussed even if they declined (Discuss DNR or withdrawal of care, Hospice)? DNR status @ -No What co-morbidities impacted this encounter? (DM, HTN, Smoking, COPD, CAD, Cancer, CVA, ARF, Chemo, Hep., AIDS, mental health diagnosis, sleep apnea, morbid obesity)? @ -None Was patient admitted / discharged? Hospital course, mention meds given and route, prescriptions, significant lab abnormalities, going to OR and other pertinent info. @ -Discharge. No red flag symptoms. Left extremity neurovascularly intact. X- ray reveals left ankle soft tissue swelling and 2 mm ossified density inferior to lateral malleolus which could reflect acute tiny avulsion fracture. Results discussed with patient. Posterior splint applied, neurovascularly intact status post procedure. Patient declines crutches as she states she has scooter at home she will use from previous injury. Patient follows with [facility] and states she will call them on Friday. Appropriate return precautions and follow-up care discussed. Case was discussed with my ED attending Dr. Sanchez Undiagnosed new problem with uncertain prognosis? @ -No Drug Therapy requiring intensive monitoring for toxicity (Heparin, Nitro, Insulin, Cardizem)? @ -No Were any procedures done? @ -Orthopedic splinting applied to the left ankle Diagnosis/symptom? @ -Left ankle fracture Acute, or Chronic, or Acute on Chronic? @ -Acute Uncomplicated (without systemic symptoms) or Complicated (systemic symptoms)? @ -Uncomplicated Side effects of treatment? @ -No Exacerbation, Progression, or Severe Exacerbation? @ -No Poses a threat to life or bodily function? How? (Chest pain, USA, MD, pneumonia, PE, COPD, DKA, ARF, appy, cholecystitis, CVA, Diverticulitis, Homicidal, Suicidal, threat to staff... and all critical care pts) @ -No Disposition Clinical Impression: Closed left ankle fracture Disposition: HOME SELF-CARE Condition: Stable Instructions (If sedation given, give patient instructions): Ankle Fracture (ED) Additional Instructions: Keep splint dry. Rest, elevate, and ice left ankle. Follow-up with [facility] as discussed on Friday. Please return to the Emergency Department if symptoms worsen or any other concerns. Is patient prescribed a controlled substance at d/c from ED?: No Referrals: Nonstaff,Physician [REFERRING] - 1-2 days Time of Disposition: 18:58
[2024-10-02] MEDS: ACETAMINOPHEN TAB 500 MG TAB PO STA (18:09)
--- NOTE | 2024-10-02 18:26 | XR ---
EXAMINATION TYPE: XR ankle complete LT DATE OF EXAM: 10/02/2024 6:17 PM COMPARISON: None available. CLINICAL INDICATION: Female, 74 years old with history of left ankle injury; [facility] TECHNIQUE: XR ankle complete LT; ankle is imaged in frontal, lateral and oblique projections. FINDINGS: Tiny 2 mm ossific density inferior to the lateral malleolus could reflect an acute avulsion fracture. Tibia talar joint and talar dome unremarkable. No additional evidence of acute fracture or dislocati on. Ankle soft tissues on throughout. Despite changes along the plantar calcaneal surface. Mid foot d egenerative changes noted on lateral view. IMPRESSION: Ankle soft tissue swelling and 2 mm ossific density inferior to the lateral malleolus which could ref lect an acute tiny avulsion fracture. [facility], , 10/02/2024 6:23 PM
[2024-10-02 18:56] VITALS: BP 145/74; PULSE 69
== END 2024-10-02 19:25 | disposition home or self-care (01) ==
LOC: EC 17:31
DX: S82.62XA Displaced fracture of lateral malleolus of left fibula, initial encounter for closed fracture (principal); Z88.0 Allergy status to penicillin; W01.0XXA Fall on same level from slipping, tripping and stumbling without subsequent striking against object, initial encounter
CPT/HCPCS: 29515; 99284